=== PATIENT | male | born 1960 | race Caucasian/White ===

== ENCOUNTER 2022-06-22 02:42 | Emergency (ER) | payer OTHER ==
[2022-06-22 02:51] VITALS: BP 157/98; PULSE 86; RESP 20; TEMP 97.4; BMI 29.5
== END 2022-06-22 04:31 | disposition home or self-care (01) ==
LOC: JER 02:42
DX: R09.81 Nasal congestion (principal)
CPT/HCPCS: 0241U-QW; 99283-25

== ENCOUNTER 2022-08-24 10:01 | Inpatient (IN) | payer OTHER ==
[2022-08-24 10:15] VITALS: BMI 35.9
[2022-08-24 12:05] LABS: BASO % 0.5 % (0-2.0); EOS % 15.7 % (0-4.5); HEMATOCRIT 22.5 % (35.4-49); MCHC 28.5 g/dl (32.0-35.9); MEAN CELL VOLUME 54.5 fl (80-96); MEAN PLT VOLUME 8.3 fl (7.5-11.1); MONO % 7.6 % (3.8-10.2); NEUT % 56.2 % (42.8-82.8); PLATELET COUNT 216 10^3/uL (134-434); RBC 4.13 M/mm3 (4.00-5.60); RDW 22.6 % (11.9-15.9)
[2022-08-24 12:06] LABS: MCH 15.5 pg (25.7-33.7)
[2022-08-24 12:07] LABS: HEMOGLOBIN 6.4 GM/dL (11.7-16.9)
[2022-08-24 12:28] LABS: CALCIUM 8.5 mg/dL (8.5-10.1)
[2022-08-24 12:29] LABS: ALBUMIN 3.6 g/dl (3.4-5.0); BLOOD UREA NITROGEN 23.7 mg/dL (7-18)
[2022-08-24 12:32] LABS: CREATININE 1.2 mg/dL (0.55-1.3)
[2022-08-24 12:34] LABS: BILIRUBIN,TOTAL 0.8 mg/dL (0.2-1); TOT PROT 6.1 g/dl (6.4-8.2)
[2022-08-24 12:44] LABS: ANISOCYTOSIS 3+; MACROCYTOSIS 0; OVALOCYTE 1+
[2022-08-24] MEDS ORDERED: ALBUTEROL SO4 HFA INHALER IH PRN (14:10)
[2022-08-24] MEDS ORDERED: IRON SUCROSE INJECTION 200 MG in SODIUM CHLORIDE 90 ML IVPB ONE ×2 (15:30→19:00)
[2022-08-24] MEDS: PANTOPRAZOLE 40 MG TABLET PO SCH (22:11)
[2022-08-25 07:58] LABS: HEMATOCRIT 24.3 % (35.4-49); HEMOGLOBIN 7.1 GM/dL (11.7-16.9); MEAN CELL VOLUME 56.8 fl (80-96); MEAN PLT VOLUME 8.3 fl (7.5-11.1); PLATELET COUNT 209 10^3/uL (134-434); RBC 4.28 M/mm3 (4.00-5.60); RDW 25.3 % (11.9-15.9); WHITE BLOOD COUNT 6.8 K/mm3 (4.0-10.0)
[2022-08-25 08:19] LABS: MCH 16.5 pg (25.7-33.7)
[2022-08-25] MEDS: PANTOPRAZOLE 40 MG TABLET PO SCH ×2 (09:29→21:42)
[2022-08-25] MEDS ORDERED: IRON SUCROSE INJECTION 200 MG in SODIUM CHLORIDE 90 ML IVPB ONE (10:00)
[2022-08-26] MEDS: PANTOPRAZOLE 40 MG TABLET PO SCH ×2 (09:34→21:52)
[2022-08-26] MEDS ORDERED: IRON SUCROSE INJECTION 200 MG in SODIUM CHLORIDE 90 ML IVPB ONE (10:00)
[2022-08-26 12:33] LABS: HEMATOCRIT 29.6 % (35.4-49); HEMOGLOBIN 8.7 GM/dL (11.7-16.9); MCHC 29.3 g/dl (32.0-35.9); MEAN CELL VOLUME 60.2 fl (80-96); MEAN PLT VOLUME 8.2 fl (7.5-11.1); PLATELET COUNT 246 10^3/uL (134-434); RBC 4.91 M/mm3 (4.00-5.60); RDW 28.4 % (11.9-15.9); WHITE BLOOD COUNT 8.6 K/mm3 (4.0-10.0)
[2022-08-26 12:35] LABS: MCH 17.7 pg (25.7-33.7)
[2022-08-27 07:06] VITALS: TEMP 97.8
[2022-08-27 09:03] LABS: HEMATOCRIT 31.4 % (35.4-49); HEMOGLOBIN 9.3 GM/dL (11.7-16.9); MCHC 29.6 g/dl (32.0-35.9); MEAN CELL VOLUME 60.7 fl (80-96); MEAN PLT VOLUME 8.7 fl (7.5-11.1); PLATELET COUNT 251 10^3/uL (134-434); RBC 5.18 M/mm3 (4.00-5.60); RDW 30.7 % (11.9-15.9); WHITE BLOOD COUNT 7.6 K/mm3 (4.0-10.0)
[2022-08-27] MEDS: PANTOPRAZOLE 40 MG TABLET PO SCH (09:38)
[2022-08-27 15:12] VITALS: BP 121/76; PULSE 76; RESP 13
== END 2022-08-27 16:55 | disposition home or self-care (01) | DRG 812 ==
LOC: JER 10:01 → JERBED 13:19 → J7W 17:05
PROVIDERS: ADMIT Internal Medicine; ATTEND Internal Medicine
PROC: 30233N1 Transfusion of Nonautologous Red Blood Cells into Peripheral Vein, Percutaneous Approach (ICD-10-PCS; principal; 2022-08-24)
PROC: 0DB68ZX Excision of Stomach, Via Natural or Artificial Opening Endoscopic, Diagnostic (ICD-10-PCS; 2022-08-27)
DX: D50.9 Iron deficiency anemia, unspecified (principal); I45.6 Pre-excitation syndrome; K29.70 Gastritis, unspecified, without bleeding; K44.9 Diaphragmatic hernia without obstruction or gangrene; E66.9 Obesity, unspecified; Z68.35 Body mass index [BMI] 35.0-35.9, adult; K25.9 Gastric ulcer, unspecified as acute or chronic, without hemorrhage or perforation
CPT/HCPCS: 0241U-QW; 36415; 36430; 71046-TC-FY; 80053; 82272; 82728; 82746; 83010; 83540; 83550; 83615; 85025; 85027; 85045; 86850; 86900; 86901; 86922; 88305-TC; 88341-TC; 93005; 93010; 99285-25; C9803-CS; J1756; P9058; U0003; U0005